=== PATIENT | female | born 1975 | race African-American/Black ===

== ENCOUNTER 2020-01-09 21:42 | Emergency (ER) | payer BC ==
[~2020-01-09] VITALS: Ht 172.7 cm; Wt 90.7 kg
--- NOTE | 2020-01-09 22:00 | NUR ---
ED Nurse Note: Recieved pt walk in from home, here with c/o mid back pain at 2/10 [facility] [employer]ACH[employer], pt denies k.o or any other injuries or pain, denies feeling dizzy prior or after, no fevers, cp or sob, will resume care as ordered and continue to closely monitor.
[2020-01-09] MEDS ORDERED: Ketorolac 60mg Inj IM ONE (22:30)
--- NOTE | 2020-01-09 22:35 | NUR ---
ED Nurse Note: Meds given effective, pt resting quietly, denies any changes or increased distress.
[2020-01-09] MEDS ORDERED: Ketorolac 30mg Inj ONE (22:36)
--- NOTE | 2020-01-09 22:37 | Emergency Room Report ---
History of Present Illness General Chief Complaint: Back Injury Source: Patient Present Illness HPI 44-year-old female here with lower back pain. 4 hours ago the patient said that she suffered a mechanical fall and fell backwards striking the midline lumbar spine against the corner of a cabinet. Said that she never fell or hit her head or neck or had any loss of consciousness. She says that soon after this happened she "felt a shift" in her lower spine and felt some numbness and tingling on her left lateral leg. She says that this has somewhat subsided but she still feels a somewhat decreased level of sensation on her left lateral lower extremity. Also has a mild headache. She does suffer from migraines says that this feels like a normal migraine for her. No vision changes, focal weakness, chest pain, palpitation, shortness of breath, saddle anesthesia, use of steroids, other trauma, IV drug use, fevers, chills. 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 COVID-19 Screening: Positive COVID-19 COVID-19 Testing Source: JULY 2019 Patient History Last Menstrual Period: 01/09/2020 Now: No : 0 Para: 0 Nursing Documentation-[facility] Past Medical History: No Stated History Review of Systems All Other Systems: negative except mentioned in HPI Physical Exam Vital Signs Date Time Temp Pulse Resp B/P (MAP) Pulse Ox O2 Delivery O2 Flow Rate FiO2 01/09/20 21:43 98.1 101 16 155/82 (106) 98 Room Air Sp02 EP Interpretation: reviewed, normal General Appearance: no apparent distress, alert, non-toxic Head: normocephalic, atraumatic Eyes: bilateral eye normal inspection, bilateral eye PERRL ENT: hearing grossly normal, normal pharynx, no angioedema, normal voice Neck: full range of motion, supple/symm/no masses Respiratory: chest non-tender, lungs clear, normal breath sounds, speaking full sentences Cardiovascular #1: regular rate, rhythm, no edema Cardiovascular #2: 2+ carotid (R), 2+ carotid (L), 2+ radial (R), 2+ radial (L), 2+ dorsalis pedis (R), 2+ dorsalis pedis (L) Gastrointestinal: normal bowel sounds, non tender, soft, non-distended, no guarding, no rebound Rectal: deferred Genitourinary: normal inspection, no CVA tenderness Musculoskeletal: back normal, normal range of motion, gait/station normal, other - No step-offs or deformities. Subjective tenderness on palpation of the midline lumbosacral spine. Negative straight leg raise test Neurologic: alert, motor strength/tone normal, oriented x3, sensory intact, responsive, speech normal Psychiatric: judgement/insight normal, memory normal, mood/affect normal, no suicidal/homicidal ideation Lymphatic: no adenopathy Medical Decision Making Diagnostic Impression: Primary Impression: Lumbosacral strain Additional Impression: Retrolisthesis of vertebrae ER Course EXAM: XR Lumbosacral Spine, 2 or 3 Views CLINICAL HISTORY: FALL TECHNIQUE: Frontal and lateral views of the lumbar spine and sacrum. COMPARISON: No relevant prior studies available. FINDINGS: Vertebrae: No compression fracture. 6 mm retrolisthesis of L5 on S1, age indeterminate, likely chronic. Limbus vertebral body at L4 and L5. Sacrum/coccyx: Unremarkable as visualized. No fracture. Disc spaces: Mild degenerative disc disease. Soft tissues: Paravertebral soft tissues appear norm. IMPRESSION: No compression fracture. 6 mm retrolisthesis of L5 on S1, age indeterminate, likely chronic ddx: Musculoskeletal, compression fx, herniated sic, sciatica, spinal stenosis, epidural abscess, osteomyelitis, cauda equina, mass-tumor 44-year-old female here with midline lower back pain after striking her lower back against the corner of a desk about 4 hours prior to come to the emergency department. She was neurovascularly intact and had a negative straight leg raise test. She had only very mild tenderness on palpation of her lumbar spine. She was ambulatory throughout the emergency department without much difficulty. She was given Toradol with complete resolution of her symptoms. She had no red flag warning signs of her back pain such as saddle anesthesia, urinary or fecal retention or incontinence, other trauma, steroid use, fevers or chills, IV drug use. X-ray did not reveal any acute fracture or dislocation, however there was a very small amount of L5 over S1 retrolisthesis. I explained the findings to the patient. She says that she has an orthopedic doctor with whom she will follow up. Was told to come back to the emergency department with any of these red flag warning signs. She expressed understanding, was discharged. Last Vital Signs Date Time Temp Pulse Resp B/P (MAP) Pulse Ox O2 Delivery O2 Flow Rate FiO2 01/09/20 21:43 98.1 101 16 155/82 (106) 98 Room Air Scripts Ibuprofen* (MOTRIN*) 600 Mg Tablet 600 MG ORAL Q6H PRN for FOR PAIN, #20 TAB 0 Refills Prov: Campos Damian M.D. 01/09/20 Methocarbamol* (ROBAXIN-750*) 750 Mg Tablet 750 MG PO TID, #21 TAB 0 Refills Prov: Campos Damian M.D. 01/09/20 Referrals: NON PHYSICIAN (PCP) Campos Damian M.D. Jan 09, 2020 22:37
[2020-01-09 23:15] VITALS: BP 136/78
--- NOTE | 2020-01-09 23:21 | Diagnostic Imaging Report ---
EXAM: XR Lumbosacral Spine, 2 or 3 Views CLINICAL HISTORY: FALL TECHNIQUE: Frontal and lateral views of the lumbar spine and sacrum. COMPARISON: No relevant prior studies available. FINDINGS: Vertebrae: No compression fracture. 6 mm retrolisthesis of L5 on S1, age indeterminate, likely chronic. Limbus vertebral body at L4 and L5. Sacrum/coccyx: Unremarkable as visualized. No fracture. Disc spaces: Mild degenerative disc disease. Soft tissues: Paravertebral soft tissues appear norm. IMPRESSION: No compression fracture. 6 mm retrolisthesis of L5 on S1, age indeterminate, likely chronic
[2020-01-09] MEDS ORDERED: IBUPROFEN600 M1 ORAL (23:24)
[2020-01-09] MEDS ORDERED: ROBAXIN-750750 MG PO (23:24)
[2020-01-09 23:35] VITALS: BP 155/82
--- NOTE | 2020-01-09 23:35 | NUR ---
ER DISCHARGE NOTE: Patient is cleared to be discharged per ERMD, pt is aox4, on room air, with stable vital signs. pt was given dc and prescription instructions, pt was able to verbalize understanding, pt id band removed without complications. pt is able to ambulate with steady gait. pt took all belongings.
== END 2020-01-09 23:35 | disposition home or self-care (01) ==
LOC: EMR 22:16
DX: S39.012A Strain of muscle, fascia and tendon of lower back, initial encounter (principal); M43.17 Spondylolisthesis, lumbosacral region; W01.190A Fall on same level from slipping, tripping and stumbling with subsequent striking against furniture, initial encounter; Y93.9 Activity, unspecified; Y92.9 Unspecified place or not applicable; Z88.6 Allergy status to analgesic agent; Z88.0 Allergy status to penicillin; Z91.018 Allergy to other foods; Z86.19 Personal history of other infectious and parasitic diseases
CPT/HCPCS: 72020; 96372; 99283; J1885